=== PATIENT | male | born 1990 | race Caucasian/White ===

== ENCOUNTER 2020-01-26 22:43 | Emergency (ER) | payer OTHER, SELFPAY ==
[2020-01-26 22:56] VITALS: BP 124/71; PULSE 87; RESP 16; TEMP 37.4; O2SAT 97; BMI 26.9
--- NOTE | 2020-01-26 23:34 | ECG_ITS ---
Test Reason : CHEST PRESSURE Blood Pressure : / mmHG Vent. Rate : 075 BPM Atrial Rate : 075 BPM P-R Int : 172 ms QRS Dur : 086 ms QT Int : 362 ms P-R-T Axes : 036 059 049 degrees QTc Int : 404 ms Normal sinus rhythm with sinus arrhythmia Normal ECG No previous ECGs available Referred By: Aris Kingston Electronically Signed By:FRANKY ARAGON
--- NOTE | 2020-01-26 23:36 | ED_ITS ---
HPI - Chest Pain General Chief Complaint: Dyspnea Stated Complaint: TIGHTNESS IN CHEST,NO COVID CONTACT Time Seen by Provider: 01/26/20 23:03 Source: patient Mode of arrival: EMS Limitations: no limitations History of Present Illness HPI narrative: 29-year-old male who presents to the emergency department for evaluation of chest pain, shortness of breath, hot and cold chills, and near syncope. The patient states he has had chest pain for approximately 5 days. He points to his mid sternum as to localize the pain. He states that the pain is a constant tightness which waxes and wanes in intensity. The pain is worse with exertion. He states the pain occasionally radiates to his left breast. He states that the pain is 6/10 at its worst. Prior to coming to the emergency department he states that he developed shaking chills and felt very hot. He states that he felt very weak. He became lightheaded and dizzy and felt he was going to pass out. He states that his entire body got numb and tingly. He ca lled 911 and was transported to the emergency department by ambulance. He states that over the last 1 and half days he has noticed pain in his right calf area but no swelling. He states that he drives to work approximately [address] States he has had diarrhea on and off for the past 2 weeks. The patient has no significant past medical history. He denies using supplemental testosterone/steroids. He does smoke 1 pack of cigarettes per day for at least 1 year. Denies alcohol and drug use. Related Data Allergies Allergy/AdvReac Type Severity Reaction Status Date / Time Bactrim Allergy Hives Uncoded 01/27/20 00:11 Review of Systems Review of Systems: Yes all other systems are reviewed and are negative Constitutional: Constitutional: Reports as per HPI Eyes: Eyes: Reports as per HPI ENT: Reports as per HPI Cardiovascular: Cardiovascular: Reports as per HPI Respiratory: Respiratory: Reports as per HPI Gastrointestinal: Gastrointestinal: Reports as per HPI Genitourinary: Genitourinary: Reports as per HPI Musculoskeletal: Musculoskeletal: Reports as per HPI Integumentary/Breasts: Skin/Breast: Reports as per HPI Neurologic: Reports as per HPI and Reports Abnormal speech present Psychiatric: Psychiatric: Reports as per HPI Allergic/Immunologic: Allergic/Immunologic: Reports as per HPI [facility] Past Medical History Attestation statement: The following information was validated with the patient. 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 He smokes cigarettes, 1 pack per day x1 year, he denies drug and alcohol use. Medical History Fracture Social History Social History Advance Directives: No Physical Exam Vital Signs: Vital Signs: Last Vital Signs Temp 99.4 F 01/26/20 22:56 Pulse 81 01/27/20 00:02 Resp 18 01/27/20 00:02 BP 116/74 01/27/20 00:02 Pulse Ox 97 01/27/20 00:02 Body Mass Index 26.9 Const: General: cooperative, no acute distress, alert, awake and anxious Orientation/consciousness: oriented to person and oriented to place Limitations: no limitations HENMT: Head: Yes normal to inspection, Yes normocephalic and Yes atraumatic Ears: external ears normal General nose exam: Normal external nose present Face and sinus: Yes normal facial exam Mouth: Normal oral and palatal mucosa present Throat: Yes posterior oropharynx normal Eyes: General: appearance normal, both eyes and all related structures Sparkle orbital: periorbital findings normal Eyelids: Yes eyelids normal Conjunctivae: conjunctivae normal Sclerae: sclerae normal Corneas: corneas normal Pupils: Equal, round and reactive pupils present Direct Ophthalmosc opy: normal light reflex Neck: Neck: Yes normal visual inspection and Yes supple Lymphatic: no lymphadenopathy noted Chest: Chest palpation & inspection: normal inspection of the chest and tenderness sternum ([id number]) and costochondral junction ([id number]) Resp: Effort & Inspection: normal respiratory effort, abnormal respiratory pat tern, no audible wheezes and no respiratory distress Auscultation: clear to auscultation bilaterally, no crackles, no rales, no rhonchi and no wheezes Cardio: Rate: regular rate Rhythm: regular rhythm Heart sounds: S1 normal heart sound present, S2 normal heart sound present and no murmurs GI: Inspection: No distended Palpation (GI): Soft to palpation, nontender, no guarding and No hepatosplenomegaly present Auscultation: normal bowel sounds : General: Yes no CVA tenderness Back/Spine/Pelvis: Back: no CVA tenderness Skin: General skin exam: no rashes or lesions noted Lesions: no lesions Rashes: no rashes Wounds: no wounds Neuro: General: oriented to person and oriented to place Cranial nerves: Yes CN's II-XII intact bilaterally and Yes Equal, round and reactive pupils present Cognition (Neuro): normal cognition Speech: Abnormal speech present Motor exam (neuro): 5/5 motor strength present throughout Extrem: General: Yes normal to inspection, Yes full ROM, Yes no pedal edema and Yes calf tenderness (Right calf) Psych: Appearance: grossly normal Mental Status: mental status grossly normal Speech and movement: Clear speech present Affect: normal affect Thought process: Normal thought process present Course Course Course Narrative: 29-year-old male who presents emergency department for evaluation of chest pain x5 days, sudden onset shaking chills with near syncope and right calf pain x1 half days. The patient's physical examination revealed that he was afebrile with a temperature of 99.9? with a normal pulse of 87, normal respiratory rate 16 and O2 saturation of 97% on room air. Patient did have some right calf tenderness otherwise exam was unremarkable. The differential includes infectious process such as COVID-19 versus pneumonia, pulmonary embolism, cardiac cause. I did order a septic workup on this patient, EKG, troponin and D-dimer. Given his right calf pain, chest tightness and near syncope I think this patient has a high probability for pulmonary embolism therefore CT pulmonary angiogram PE protocol was ordered prior to receiving the D-dimer help. The patient does appear to be anxious and is ordered Ativan 1 mg IV and Toradol 30 mg IV for his chest pain. 0202: The patient's laboratory evaluation was normal including a non elevated D-dimer and a normal troponin. The patient's EKG was unremarkable. The patient's COVID-19 test was negative. The patient's CT pulmonary angiogram PE protocol revealed no pulmonary embolism and no acute process. The patient felt significantly better after receiving Toradol IV and Ativan IV. My impression is that the patient's chest pain is most likely secondary to costochondritis and he had increased pain this evening that been triggered hyperventilation/anxiety attack. I did discuss this with the patient. The patient was discharged home and advised to take ibuprofen 600 mg 3 times a day for the next 3-4 days to help treat his chest pain. Advised to follow-up with his doctor in 2 days and return to the emergency department if his symptoms get worse or if he develops any symptoms that are concerning to him. MDM - Chest Pain Medical Records Data Attestation: I reviewed the patient's medical records. Lab Data Attestation: I reviewed the patient's lab results. Result diagrams: 01/26/20 23:51 01/26/20 23:51 Labs: Lab Results 01/26/20 01/26/20 01/26/20 Range/Units 23:50 23:51 23:51 WBC 7.2 (4.8-10.8) X10*3/uL RBC 4.85 (4.60-5.80) X10*6/uL Hgb 15.0 (14.0-18.0) g/dl Hct 43.0 (42-52) % MCV 88.7 (80-98) fL MCH 30.9 (27.0-33.0) pg MCHC 34.9 (31.0-36.0) g/dl RDW 12.2 (11.0-16.0) % Plt Count 261 (160-400) X10*3/uL MPV 10.3 (9.4-12.4) fL Immature Gran % (Auto) 0.1 (0.0-0.4) % Neut % (Auto) 63.1 (45-73) % Lymph % (Auto) 25.8 (20-40) % Valley % (Auto) 9.6 (2-11) % Eos % (Auto) 0.8 (0-4) % Baso % (Auto) 0.6 (0-2) % Lymph # (Auto) 1.9 (1.2-4.9) X10*3/uL Valley # (Auto) 0.7 (0.1-1.2) X10*3/uL Eos # (Auto) 0.1 (0.0-0.4) X10*3/uL Baso # (Auto) 0.0 (0.0-0.2) X10*3/uL Abs Immat Gran (auto) 0.01 (0.00-0.03) X10*3/uL Absolute Neuts (auto) 4.5 (2.0-8.3) X10*3/uL Absolute Nucleated RBC 0.000 (0.0-0.012) X10*3/uL Nucleated RBC % (auto) 0.0 (0.0-0.2) /100WBC PT 12.5 (10.8-13.0) SEC INR 1.1 (0.9-1.1) APTT 29.7 (24.1-38.0) SEC D-Dimer < 200 NG/ML Sodium (135-145) mmol/L Potassium (3.3-5.1) mmol/l Chloride (96-108) mmol/L Carbon Dioxide (22-29) mmol/L Anion Gap (12-20) BUN (9-16) mg/dL Creatinine (0.5-1.4) mg/dL Estim Creat Clear Calc Estimated GFR Random Glucose (60-115) mg/dL Lactic Acid 1.5 (0.5-2.0) mmol/L Calcium (8.4-10.2) mg/dL Total Bilirubin (0.0-1.0) mg/dL Direct Bilirubin (0.0-0.5) mg/dL AST (5-37) U/L ALT (0-40) U/L Alkaline Phosphatase (39-117) U/L Troponin I High Sens (<3.5-35.0) ng/L Total Protein (6.5-8.0) g/dL Albumin (3.5-5.0) g/dL COVID-19 ([facility]) (Negative) COVID-19 Clin Com 01/26/20 01/26/20 01/26/20 Range/Units 23:51 23:51 23:52 WBC (4.8-10.8) X10*3/uL RBC (4.60-5.80) X10*6/uL Hgb (14.0-18.0) g/dl Hct (42-52) % MCV (80-98) fL MCH (27.0-33.0) pg MCHC (31.0-36.0) g/dl RDW (11.0-16.0) % Plt Count (160-400) X10*3/uL MPV (9.4-12.4) fL Immature Gran % (Auto) (0.0-0.4) % Neut % (Auto) (45-73) % Lymph % (Auto) (20-40) % Valley % (Auto) (2-11) % Eos % (Auto) (0-4) % Baso % (Auto) (0-2) % Lymph # (Auto) (1.2-4.9) X10*3/uL Valley # (Auto) (0.1-1.2) X10*3/uL Eos # (Auto) (0.0-0.4) X10*3/uL Baso # (Auto) (0.0-0.2) X10*3/uL Abs Immat Gran (auto) (0.00-0.03) X10*3/uL Absolute Neuts (auto) (2.0-8.3) X10*3/uL Absolute Nucleated RBC (0.0-0.012) X10*3/uL Nucleated RBC % (auto) (0.0-0.2) /100WBC PT (10.8-13.0) SEC INR (0.9-1.1) APTT (24.1-38.0) SEC D-Dimer NG/ML Sodium 141 (135-145) mmol/L Potassium 4.1 (3.3-5.1) mmol/l Chloride 102 (96-108) mmol/L Carbon Dioxide 28 (22-29) mmol/L Anion Gap 15 (12-20) BUN 11 (9-16) mg/dL Creatinine 0.95 (0.5-1.4) mg/dL Estim Creat Clear Calc 124.7 Estimated GFR > 60 Random Glucose 95 (60-115) mg/dL Lactic Acid (0.5-2.0) mmol/L Calcium 8.8 (8.4-10.2) mg/dL Total Bilirubin 0.3 (0.0-1.0) mg/dL Direct Bilirubin < 0.2 (0.0-0.5) mg/dL AST 15 (5-37) U/L ALT 17 (0-40) U/L Alkaline Phosphatase 53 (39-117) U/L Troponin I High Sens < 3.5 (<3.5-35.0) ng/L Total Protein 7.0 (6.5-8.0) g/dL Albumin 4.5 (3.5-5.0) g/dL COVID-19 ([facility]) Negative (Negative) COVID-19 Clin Com See Note ECG Data ECG #1: Attestation: I personally reviewed and interpreted this ECG as follows: ECG interpretation date: 01/27/20 ECG interpretation time: 00:50 Interpretation: Normal sinus rhythm rate of 75, normal intervals, no ST segment elevation or depression, no T-wave abnormalities, this is a normal EKG, there is no old EKG for comparison. Discharge Plan Discharge Clinical Impression: Costochondral chest pain, Anxiety attack Chest pain Qualifiers: Chest pain type: unspecified Qualified Code(s): R07.9 - Chest pain, unspecified Patient Disposition: Home, Self-Care Instructions: Hyperventilation (ED), Costochondritis (ED) Additional Instructions: Your EKG was normal. Your laboratory evaluation was normal including an non elevated D-dimer and a non elevated troponin. The CT pulmonary angiogram of your chest revealed no blood clot or any other abnormalities to explain your chest to explain your pain. Your COVID-19 PCR test was negative. You were treated with Toradol 30 mg IV and Ativan 1 mg IV. Your chest pain is consistent with inflammation of your chest wall joint (costochondritis). Take ibuprofen 200 mg pills, 3 pills every 6 hours for the next 3-4 days to help reduce the inflammation in your chest joints. Your symptoms were also caused by hyperventilation/anxiety attack. This is your body's reaction to stress which was most likely triggered by your chest pain. Follow-up with your doctor in 2 days. Please return to emergency department if her symptoms get worse or if you develop any new symptoms that are concerning to you.
[2020-01-26] MEDS: Ketorolac Tromethamine 15 MG/ML VIAL 30 MG IV (23:57)
--- NOTE | 2020-01-27 | CT_ITS ---
EXAMINATION: CT ANGIOGRAM OF THE CHEST WITH AND WITHOUT CONTRAST (CT PULMONARY ANGIOGRAM FOR PE) CLINICAL INFORMATION: Reason for Exam Chest pain, near syncope, right leg pain, rule out PE COMPARISON: None TECHNIQUE: Prior to contrast administration, noncontrast localization images were obtained. Subsequently, multidetector volumetric imaging was performed from the thoracic inlet to below the diaphragms following the administration of 65 mL Omnipaque 350 intravenous contrast. No contrast reaction reported Sagittal, coronal, and MIP oblique sagittal reformatted images were obtained on the CT workstation, uploaded to PACS, and reviewed. This CT examination was performed using dose optimization techniques as appropriate, variously including the following: *Automated exposure control *Adjustment of mA and/or kV according to patient size (this includes techniques or standardized protocols for targeted exams where dose is matched to indication/reason for exam; i.e. extremities or head) *Use of iterative reconstruction technique Total exam dose-length product 396 mGy-cm FINDINGS: QUALITY OF STUDY/CONTRAST BOLUS: Satisfactory. PULMONARY ARTERIES: No central or segmental pulmonary emboli. THORACIC AORTA: No aneurysm or dissection. LUNG: No focal consolidation, nodules or masses. PLEURA: No pleural effusion or pneumothorax. MEDIASTINUM: Normal heart size. No pericardial effusion. No hilar or mediastinal lymphadenopathy. No evidence of septal bowing or right heart strain. CHEST WALL/AXILLA: No axillary or internal mammary lymphadenopathy. OSSEOUS STRUCTURES: No acute or suspicious osseous abnormality. UPPER ABDOMEN: Unremarkable. No reflux of contrast into the hepatic veins to suggest elevated right heart pressures. CT/CT angio chest PE protocol IMPRESSION: No evidence of pulmonary embolism. Lungs are clear. Unremarkable exam. VTE: negative
[2020-01-27 00:02] VITALS: BP 116/74; PULSE 81; RESP 18; O2SAT 97
[2020-01-27 00:19] LABS: MANUAL DIFF FLAG NO
[2020-01-27 00:20] LABS: Basophils Percent Auto 0.6 % (0-2); Eosinophils Absolute Auto 0.1 X10*3/uL (0.0-0.4); Eosinophils Percent Auto 0.8 % (0-4); Imm Gran Abs Auto 0.01 X10*3/uL (0.00-0.03); Imm Gran Pct Auto 0.1 % (0.0-0.4); Lymphocytes Absolute Auto 1.9 X10*3/uL (1.2-4.9); Lymphocytes Percent Auto 25.8 % (20-40); Mean Corpuscular HGB Conc 34.9 g/dl (31.0-36.0); Mean Corpuscular Hemoglobin 30.9 pg (27.0-33.0); Mean Corpuscular Volume 88.7 fL (80-98); Mean Platelet Volume 10.3 fL (9.4-12.4); Monocytes Absolute Auto 0.7 X10*3/uL (0.1-1.2); Monocytes Percent Auto 9.6 % (2-11); Neutrophils Absolute Auto 4.5 X10*3/uL (2.0-8.3); Neutrophils Percent Auto 63.1 % (45-73); Platelet Count 261 X10*3/uL (160-400); Red Blood Count 4.85 X10*6/uL (4.60-5.80); Red Cell Distribution Width 12.2 % (11.0-16.0); White Blood Count 7.2 X10*3/uL (4.8-10.8)
[2020-01-27 00:25] LABS: INTERNATIONAL NORM RATIO 1.1 (0.9-1.1); Prothrombin Time 12.5 SEC (10.8-13.0)
[2020-01-27 00:28] LABS: Partial Thromboplastin Time 29.7 SEC (24.1-38.0)
[2020-01-27 00:42] LABS: COVID-19 Test Negative (Negative)
[2020-01-27 00:42] LABS: Lactic Acid 1.5 mmol/L (0.5-2.0)
[2020-01-27 00:47] LABS: Alanine Aminotransferase 17 U/L (0-40); Albumin Level 4.5 g/dL (3.5-5.0); Alkaline Phosphatase 53 U/L (39-117); Anion Gap 15 (12-20); Aspartate Amino Transferase 15 U/L (5-37); Bilirubin Direct < 0.2 mg/dL (0.0-0.5); Bilirubin Total 0.3 mg/dL (0.0-1.0); Blood Urea Nitrogen 11 mg/dL (9-16); Calcium 8.8 mg/dL (8.4-10.2); Carbon Dioxide 28 mmol/L (22-29); Chloride 102 mmol/L (96-108); Creatinine Clr Calc Pharmacy 124.7; Estimated Glomerular Filt Rate > 60; Glucose Random 95 mg/dL (60-115); Potassium 4.1 mmol/l (3.3-5.1); Sodium 141 mmol/L (135-145)
[2020-01-27 00:49] LABS: D Dimer < 200 NG/ML
[2020-01-27 00:51] LABS: Troponin-I High Sensitivity < 3.5 ng/L (<3.5-35.0)
--- NOTE | 2020-01-27 00:57 | PC.NURSE ---
PT RESTING IN STRETCHER, PT'S RESPIRATIONS EASY, N/L. SKIN W/D. PT AWAITING CT SCAN. PT'S IV IS SCARING ME ACCORDING TO PT. PT EDUCATED ON IVS. PT STATES IM FEELING A LITTLE BETTER . VS OBTAINED. WILL CONTINUE TO MONITOR PT.
[2020-01-27] MEDS: iohexoL 350 MG/ML 100 ML INFUS..BTL 65 ML IV (01:28)
== END 2020-01-27 02:26 | disposition home or self-care (01) ==
PROVIDERS: Emergency Provider Emergency Medicine Emergency Medical Services
DX: M94.0 Chondrocostal junction syndrome [Tietze] (principal); Z20.828 Contact with and (suspected) exposure to other viral communicable diseases; F41.9 Anxiety disorder, unspecified; R50.9 Fever, unspecified
CPT/HCPCS: 36415; 71275; 80048; 80076; 83605; 84484; 85025; 85379; 85610; 85730; 87040; 87635; 93005; 99283; J1885; J2060; Q9967